=== PATIENT | female | born 1980 | race Hispanic/Latino ===

== ENCOUNTER 2024-09-21 16:28 | Emergency (ER) | payer SELFPAY ==
[2024-09-21 16:30] VITALS: PULSE 75; RESP 16; TEMP 98.3; O2SAT 100
[2024-09-21] MEDS ORDERED: IBUPROFEN600 MG PO (17:02)
[2024-09-21] MEDS ORDERED: VALACYCLOVIR500 MG PO (17:02)
[2024-09-21] MEDS ORDERED: DOXYCYCLINE HY100 MG PO (17:02)
== END 2024-09-21 17:15 | disposition home or self-care (01) ==
LOC: FSED 16:33
DX: R30.0 Dysuria (principal); A60.00 Herpesviral infection of urogenital system, unspecified; A64 Unspecified sexually transmitted disease; I10 Essential (primary) hypertension; F41.9 Anxiety disorder, unspecified; F32.A Depression, unspecified
CPT/HCPCS: 81003; 81025; 99284